=== PATIENT | male | born 1980 | race African-American/Black ===

== ENCOUNTER 2019-03-13 20:36 | Inpatient (IN) | payer SELFPAY ==
[2019-03-13] MEDS ORDERED: Aspirin Chewable 81 MG TAB ONE (21:05)
[2019-03-13 21:15] LABS: #Basophils 0.1 thou/uL (0.0-0.2); #Eosinphils 0.1 thou/uL (0.0-0.7); #Lymphocytes 4.1 thou/uL (1.20-3.40); #Monocytes 0.5 thou/uL (0.11-0.59); #Neutrophils 3.3 thou/uL (1.40-6.50); %Basophils 1.7 % (0.0-1.0); %Eosinophils 1.7 % (0.0-10.0); %Lymphocytes 49.9 % (21.0-51.0); %Monocytes 6.5 % (0.0-10.0); %Neutrophils 40.3 % (42.0-75.0); Hemoglobin 14.4 g/dL (14.0-18.0); Mean Corpuscular HGB CONC 32.7 g/dL (32.0-36.0); Mean Corpuscular Hemoglobin 30.3 pg (27.0-31.0); Mean Corpuscular Volume 92.5 fL (78.0-98.0); Mean Platelet Volume 6.1 fL (7.4-10.4); Platelet Count 283 thou/uL (130-400); RBC Distribution Width 13.3 % (11.5-14.5); Red Blood Cell (RBC) Count 4.75 mill/uL (4.70-6.10); White Blood Cell (WBC) Count 8.1 thou/uL (4.8-10.8)
--- NOTE | 2019-03-13 21:31 | RAD ---
PORTABLE CHEST ONE VIEW: 03/13/2019 9:18 p.m. HISTORY: Chest pain. COMPARISON: 06/01/2014 FINDINGS: The heart size is normal. The lungs are well expanded without focal areas of consolidation, pneumoth oraces, or pleural effusions. IMPRESSION: No acute process. POS: [facility]
[2019-03-13 21:38] LABS: ALT (SGPT) 27 U/L (8-55); AST (SGOT) 19 U/L (5-34); Alkaline Phosphatase 77 U/L (40-150); Anion Gap 13 mmol/L (10-20); BUN (Urea Nitrogen) 6 mg/dL (8.9-20.6); Bilirubin, Total 0.4 mg/dL (0.2-1.2); Calc. Creatinine Clearance 0 mL/min (70-130); Calcium 9.1 mg/dL (7.8-10.44); Carbon Dioxide 24 mmol/L (22-29); Chloride 104 mmol/L (98-107); Estimated GFR-MDRD Greater than 90; Globulin 2.9 g/dL (2.4-3.5); Glucose 96 mg/dL (70-105); Lipase 48 U/L (8-78); Potassium 3.8 mmol/L (3.5-5.1); Protein, Total 6.9 g/dL (6.0-8.3); Sodium 137 mmol/L (136-145)
[2019-03-13 22:05] LABS: CKMB 6.9 ng/mL (0-6.6)
[2019-03-13] MEDS ORDERED: Acetaminophen 325 MG TAB PO PRN (23:33)
[2019-03-13] MEDS ORDERED: HYDROcodone/Acetaminophen 5/325 mg Tablet PO PRN ×2 (23:33)
[2019-03-13] MEDS ORDERED: Ondansetron ODT 4 MG TAB SL PRN (23:33)
[2019-03-13] MEDS ORDERED: Ondansetron PF 4 MG/2 ML Vial IVP PRN (23:33)
[2019-03-13] MEDS ORDERED: Sodium Chloride 0.9% 1,000 ML IV SCH (23:45)
[2019-03-14 00:14] VITALS: BMI 30.5
[2019-03-14] MEDS ORDERED: Ondansetron ODT 4 MG TAB PO PRN (00:25)
[2019-03-14] MEDS ORDERED: Ondansetron PF 4 MG/2 ML Vial IVP PRN (00:25)
[2019-03-14] MEDS ORDERED: Morphine 2 MG/ML SYRINGE SLOW IVP PRN (00:25)
[2019-03-14] MEDS ORDERED: Acetaminophen 500 MG TAB PO PRN (00:25)
[2019-03-14] MEDS ORDERED: hydrALAZINE 20 MG/ML VIAL SLOW IVP PRN (00:25)
[2019-03-14] MEDS ORDERED: Nitroglycerin 0.4 MG TAB (25 Tab Bottle) SL PRN (00:25)
[2019-03-14 01:22] LABS: Troponin I 1.488 ng/mL (< 0.028)
[2019-03-14] MEDS: Nitroglycerin 2% Ointment 1 INCH/1 GM Packet TOP SCH ×3 (01:50→19:27)
[2019-03-14 04:00] LABS: Troponin I 1.964 ng/mL (< 0.028)
[2019-03-14 05:44] LABS: Anion Gap 13 mmol/L (10-20); BUN (Urea Nitrogen) 5 mg/dL (8.9-20.6); Calc. Creatinine Clearance 173 mL/min (70-130); Calcium 9.2 mg/dL (7.8-10.44); Carbon Dioxide 22 mmol/L (22-29); Chloride 108 mmol/L (98-107); Estimated GFR-MDRD Greater than 90; Glucose 98 mg/dL (70-105); Potassium 3.8 mmol/L (3.5-5.1); Sodium 139 mmol/L (136-145)
[2019-03-14 06:00] LABS: Eosinophils 2 % (0-10); Hemoglobin 13.4 g/dL (14.0-18.0); Lymphocytes 58 % (21-51); MDiff Complete? YES; Mean Corpuscular HGB CONC 32.8 g/dL (32.0-36.0); Mean Corpuscular Hemoglobin 30.7 pg (27.0-31.0); Mean Corpuscular Volume 93.6 fL (78.0-98.0); Mean Platelet Volume 6.5 fL (7.4-10.4); Monocytes 6 % (0-10); Neutrophil 34 % (42-75); Platelet Count 272 thou/uL (130-400); RBC Distribution Width 13.1 % (11.5-14.5); Red Blood Cell (RBC) Count 4.38 mill/uL (4.70-6.10); White Blood Cell (WBC) Count 8.7 thou/uL (4.8-10.8)
[2019-03-14 06:16] LABS: Amphetamine Detected (NotDetected); Barbiturates Screen Not Detected (NotDetected); Benzodiazepine Screen Not Detected (NotDetected); Cocaine Metabolite Screen Not Detected (NotDetected); Medtox Control Line Valid? VALID (VALID); Medtox Reader # READER 4; Methadone Not Detected (NotDetected); Methamphetamine Detected (NotDetected); Opiate Screen Detected (NotDetected); Oxycodone Screen Not Detected (NotDetected); Phencyclidine (PCP) Not Detected (NotDetected); THC/Cannabinoid Screen Not Detected (NotDetected); Tricyclic Screen Not Detected (NotDetected)
--- NOTE | 2019-03-14 08:21 | HP ---
PRIMARY CARE PROVIDER: Dr. Silver. CHIEF COMPLAINT: Chest pain. HISTORY OF PRESENT ILLNESS: This is a 38-year-old male with a known history of coronary artery disease, status post cardiac stent placement to proximal LAD in 2011, currently medically managed with aspirin and Plavix, presenting with complaints of chest pain in the last 24 hours. The patient states the pain initiated while at rest, centrally located with some diaphoresis. The patient states there was some improvement in chest pain without specific intervention. However, initially rated the pain 6/10 and sharp. The patient states he had similar symptoms when he had his first myocardial infarction in 2011, prompting him to seek medical attention in the emergency room. The patient initially presented to [facility], receiving aspirin, topical nitroglycerin, morphine sulfate, and Lovenox 100 mg subcutaneously x1 dose. Initial EKG showed a normal sinus mechanism without ST elevation. Initial troponin drawn at [facility] was normal. However, the second troponin was 0.47. Chest imaging showed no acute infiltrate. BNP was less than 10. The patient was transferred to the telemetry unit for further evaluation. PAST MEDICAL HISTORY: 1. Coronary artery disease, status post cardiac stent placement to the proximal LAD in 2011. 2. Tobacco abuse, ongoing. 3. Hyperlipidemia. PAST SURGICAL HISTORY: 1. Status post cardiac stent placement to the proximal LAD in 2011. 2. Status post cardiac catheterization without intervention in 2017. CURRENT MEDICATIONS: 1. Enteric-coated aspirin 325 mg p.o. daily. 2. Plavix 75 mg p.o. daily. 3. Lisinopril 40 mg p.o. daily. 4. Metoprolol tartrate 25 mg p.o. daily. 5. Simvastatin 80 mg p.o. at bedtime. ALLERGIES: NO KNOWN DRUG ALLERGIES. FAMILY HISTORY: Coronary artery disease in the patient's mother and father. History of CVA in the patient's mother. SOCIAL HISTORY: The patient resides in the [place], [place] area. Smokes up to a pack of cigarettes daily. No alcohol or illicit drug use reported. Functional of all activities of daily living. REVIEW OF SYSTEMS: CONSTITUTIONAL: Negative for weight loss or gain, ability to conduct usual activities. SKIN: Negative for rash, itching. EYES: Negative for double vision, pain. ENT/MOUTH: Negative for nose bleeding, neck stiffness, pain, tenderness. CARDIOVASCULAR: Negative for palpitations, dyspnea on exertion, orthopnea. RESPIRATORY: Negative for shortness of breath, wheezing, cough, hemoptysis, fever or night sweats. GASTROINTESTINAL: Negative for poor appetite, abdominal pain, heartburn, nausea, vomiting, constipation, or diarrhea. GENITOURINARY: Negative for urgency, frequency, dysuria, nocturia. MUSCULOSKELETAL: Negative for pain, swelling. NEUROLOGIC/PSYCHIATRIC: Negative for anxiety, depression. ALLERGY/IMMUNOLOGIC: Negative for skin rash, bleeding tendency. Otherwise, negative except as stated per HPI. PHYSICAL EXAMINATION: VITAL SIGNS: On admission, blood pressure 129/76, pulse 72, respiratory rate 16, temperature 97.6 degrees Fahrenheit, O2 saturation 98% on room air. GENERAL APPEARANCE: This is a 38-year-old male, alert, responsive, in no acute distress. HEENT: Pupils are equal, round, reactive to light and accommodation. Extraocular muscles are intact. No scleral icterus. No conjunctival injection. Nares patent. OP is clear. NECK: Supple. No cervical adenopathy. No thyromegaly. No carotid bruits. No JVD appreciated. Cervical spine with full active and passive range of motion. No meningeal signs noted. CHEST: Lungs are clear to auscultation bilaterally. CARDIOVASCULAR: S1 and S2 without noted murmur, rub, or gallop. ABDOMEN: Rounded, soft, nontender, and nondistended. Bowel sounds present in all 4 quadrants. No palpable mass. EXTREMITIES: Warm and dry with fair turgor. No clubbing, cyanosis, or asymmetric edema appreciated. Pulses palpable distally at the dorsalis pedis, posterior tibial, and popliteal arteries bilaterally. Capillary refill less than 2 seconds. NEUROLOGIC: Cranial nerves 2-12 are grossly intact. No focal or lateralizing signs appreciated. PERTINENT LABORATORY AND X-RAY FINDINGS: Troponin ranged between 0.06 to 0.47. Complete metabolic profile within normal limits. CBC within normal limits. Portable chest x-ray dated 03/13/2019 showed no acute cardiopulmonary process. EKG dated 03/13/2019 by my interpretation shows sinus mechanism with heart rates in the 60s. Normal R-wave progression noted in the precordial leads. Normal axis. No acute ST-T wave changes appreciated. ASSESSMENT AND PLAN: 1. Non-ST elevation myocardial infarction. The patient will be admitted to the telemetry unit. The patient received aspirin and Plavix in addition to Lovenox 100 mg subcutaneously x1 dose. Check 2D transthoracic echocardiogram in the a.m. Consult Cardiology Service for consideration of repeat cardiac catheterization given the patient's history of coronary artery disease. Continue transdermal nitroglycerin. 2. Coronary artery disease. 3. Status post cardiac stent placement to the proximal LAD in 2011. See treatment and management in #1. 4. Tobacco abuse. Offered smoking cessation resources prior to discharge. 5. Hyperlipidemia. Check fasting lipid profile in the a.m. Continue Lipitor 40 mg p.o. at bedtime. 6. Prophylaxis. SCDs while in bed. Pepcid 20 mg p.o. b.i.d.. CODE STATUS: Full. Surrogate medical decision maker is the patient's spouse. Job ID: [id number]
[2019-03-14] MEDS ORDERED: Communication Order-Pharmacy FS SCH (08:30)
[2019-03-14] MEDS: Lisinopril 20 MG TAB PO SCH (09:01)
[2019-03-14] MEDS: Famotidine 20 MG TAB PO SCH ×2 (09:02→20:29)
[2019-03-14] MEDS: Clopidogrel Bisulfate 75 MG TAB PO SCH (09:02)
[2019-03-14] MEDS: Metoprolol Tartrate 25 MG TAB PO SCH (09:02)
[2019-03-14] MEDS: Aspirin 325 mg Enteric Coated Tablet PO SCH (09:02)
[2019-03-14] MEDS ORDERED: Verapamil 5 MG/2 ML VIAL ONE (09:30)
[2019-03-14] MEDS ORDERED: Heparin 10,000 UNITS/1 ML VIAL ONE (09:30)
[2019-03-14] MEDS ORDERED: Nitroglycerin 100MG/250ML BOT 250 ML ONE (09:31)
[2019-03-14] MEDS ORDERED: Lidocaine 1% (PF) 30 ML VIAL ONE (09:31)
[2019-03-14] MEDS ORDERED: Iopamidol 370 76% 100 ML VIAL ONE (10:15)
[2019-03-14] MEDS ORDERED: Iopamidol 370 76% 50 ML VIAL FS ONE (10:15)
--- NOTE | 2019-03-14 11:26 | CON ---
DATE OF CONSULTATION: 03/14/2019 INDICATION FOR CONSULTATION: A 38-year-old patient with history of coronary artery disease, underwent angioplasty and stent placement in 2011 and repeat cardiac catheterization in 2017. At that time, his last cardiac catheterization was in December 2016 after suffering a non ST-segment elevation myocardial infarction. Ejection fraction was estimated at 40% to 45%. He also had 2/3 diastolic dysfunction. The cardiac catheterization at that time showed a patent stent in the left anterior descending artery with 40% stenosis in the proximal right coronary artery and the diagonal branch was too small to intervene upon. He was treated medically. He has been doing well since that time. He has not followed up in the office since 2014. He continues to work. Unfortunately, he continues to have hypertension, hypercholesterolemia, and tobacco abuse and uses illicit drugs in the form of methamphetamines and amphetamines and also drug screen was positive for opiates. I believe he was given some morphine in the emergency room. He was at work yesterday and started having some chest discomfort around 2 o'clock. He said that he rested and the pain resolved, but then it came back around 3 o'clock. He went to the emergency room around 0330 hours. He was given morphine and aspirin, and the pain decreased. This morning, he still continues to have some chest discomfort. His cardiac enzymes are positive for myocardial infarction. His troponin I continues to increase. On admission, it was 0.073. It has increased up to 1.48, and is now to 1.93 on the last evaluation, MB was 6.9 compatible with a non ST-segment elevation myocardial infarction. EKG does not show any acute changes and has a normal sinus rhythm. I have discussed with him the importance of proceeding with cardiac catheterization to define his coronary anatomy and I have explained the procedure, the risks to include bleeding, infection, possible myocardial infarction, CVA, renal insufficiency, allergic contrast reaction, and the possibility of , and he agrees to proceed. We will plan for cardiac catheterization this morning. PAST MEDICAL HISTORY: Otherwise is significant for the coronary artery disease, hypertension, dyslipidemia, illicit drug use, noncompliance with followups. SOCIAL HISTORY: He is . He has 2 children, no heart disease. He continues to smoke. He is trying to stop, but apparently still smoking and occasionally uses marijuana. 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 He has no alcohol use. FAMILY HISTORY: Positive for coronary artery disease in both of his parents, who had bypass surgery in their 30s and 40s. ALLERGIES: NONE. MEDICATIONS: Include Plavix, lisinopril, simvastatin, aspirin, p.r.n. clonidine, and nitroglycerin as needed as well as metoprolol. REVIEW OF SYSTEMS: Unremarkable except for the history as noted above with chest pain. He denied any HEENT complaints, GI complaints, complaints, musculoskeletal complaints, or neurological complaints. PHYSICAL EXAMINATION: GENERAL: Reveals a well-developed, well-nourished, and healthy-appearing gentleman. VITAL SIGNS: Blood pressure 133/79, heart rate is 86 and regular, respiratory rate is 18, and he is afebrile. HEENT: Shows head to be normocephalic and atraumatic. Carotid pulses are present. There were no bruits. CHEST: Clear to auscultation without rales, rhonchi, or wheezing. CARDIOVASCULAR: Exam reveals a regular rate and rhythm. Normal S1 and S2. There is no S3 or S4. There were no significant murmurs, heaves, thrills, bruits, or rubs. ABDOMEN: Soft and nontender. Positive bowel sounds are present. EXTREMITIES: Showed no clubbing, cyanosis, or edema. Pedal pulses are present. Radial pulses are present. He has multiple tattoos on the body. SKIN: Warm and dry. NEUROLOGIC: No gross focal deficits. LABORATORY DATA: EKG shows normal sinus rhythm with no acute changes. Labs as noted above; hemoglobin 13.4, WBC 8.7, and platelet count 272,000. Potassium 3.8, BUN of 5, and creatinine of 0.76. Blood sugar 98. IMPRESSION: 1. Non ST-segment elevation myocardial infarction in the patient who continues to smoke, has high blood pressure and hypercholesterolemia, who also continues to use illicit drugs. We will plan for cardiac catheterization this morning due to the elevated cardiac enzymes, which continued to increase and he also continues to have some chest discomfort. 2. History of tobacco abuse or ongoing tobacco abuse. He will be advised to stop smoking. 3. History of hypertension. This is under good control at this time. 4. Dyslipidemia. He is continued on his simvastatin. We will need to evaluate his laboratory data, most likely prior to admission. He has been somewhat noncompliant with followups in the office. 5. We will schedule him for cardiac catheterization on emergent basis. He has not had any breakfast yet and we will plan for cardiac catheterization this morning. Previous catheterization showed a patent stent in the left anterior descending artery with a proximal right coronary artery stenosis of 40%. Job ID: [id number]
--- NOTE | 2019-03-14 15:40 | PDOC.EVN ---
Event Note - Event Note Event Note: Record reviewed. Patient seen briefly. Getting echo. No complaints. Had cath with stent. Cards following.
[2019-03-14] MEDS ORDERED: Atorvastatin Calcium 40 MG TAB PO SCH (21:00)
[2019-03-15] MEDS: Nitroglycerin 2% Ointment 1 INCH/1 GM Packet TOP SCH ×2 (02:25→09:11)
[2019-03-15 05:59] LABS: ALT (SGPT) 20 U/L (8-55); AST (SGOT) 20 U/L (5-34); Albumin 3.5 g/dL (3.5-5.0); Alkaline Phosphatase 66 U/L (40-150); Anion Gap 9 mmol/L (10-20); BUN (Urea Nitrogen) 4 mg/dL (8.9-20.6); Bilirubin, Total 0.3 mg/dL (0.2-1.2); Calc. Creatinine Clearance 175 mL/min (70-130); Calcium 8.8 mg/dL (7.8-10.44); Carbon Dioxide 25 mmol/L (22-29); Cardiac Risk 5.7 (Less than 4.5); Chloride 109 mmol/L (98-107); Cholesterol 193 mg/dl (< 200 Desired); Estimated GFR-MDRD Greater than 90; Globulin 2.4 g/dL (2.4-3.5); Glucose 88 mg/dL (70-105); HDL Cholesterol 34 mg/dL (>60 Neg Risk); LDL Cholesterol, Calculated 134 mg/dL; Potassium 3.8 mmol/L (3.5-5.1); Protein, Total 5.9 g/dL (6.0-8.3); Sodium 139 mmol/L (136-145); Triglycerides 124 mg/dL (Less than 150)
[2019-03-15 06:06] LABS: Critical Call Chem Troponin I RESULT DECREASING; Troponin I 1.641 ng/mL (< 0.028)
[2019-03-15 06:52] LABS: Hemoglobin 13.5 g/dL (14.0-18.0); Mean Corpuscular Volume 93.9 fL (78.0-98.0); Mean Platelet Volume 6.1 fL (7.4-10.4); Platelet Count 268 thou/uL (130-400); RBC Distribution Width 13.2 % (11.5-14.5); White Blood Cell (WBC) Count 6.9 thou/uL (4.8-10.8)
[2019-03-15 07:30] LABS: Eosinophils 1 % (0-10); Lymphocytes 47 % (21-51); MDiff Complete? YES; Monocytes 6 % (0-10); Neutrophil 43 % (42-75); RBC Morphology Normal; Reactive Lymphocytes 3 % (0-10)
[2019-03-15] MEDS: Lisinopril 20 MG TAB PO SCH (09:06)
[2019-03-15] MEDS: Metoprolol Tartrate 25 MG TAB PO SCH (09:07)
[2019-03-15] MEDS: Clopidogrel Bisulfate 75 MG TAB PO SCH (09:07)
[2019-03-15] MEDS: Aspirin 325 mg Enteric Coated Tablet PO SCH (09:07)
[2019-03-15] MEDS: Famotidine 20 MG TAB PO SCH (09:07)
[2019-03-15 09:08] VITALS: BP 116/70
[2019-03-15 09:37] VITALS: TEMP 98.1
--- NOTE | 2019-03-15 10:51 | PDOC.CTH ---
Cardiology Progress Note - Subjective The pt seen and examined. No overnight events. No cardiac complaints. He cont. having intermittent mild discomfort to Lt MS border with movement. - Objective Vital Signs Temp Pulse Resp BP BP BP Pulse Ox 03/15/19 09:10 98 03/15/19 09:07 98.1 F 70 14 116/70 98 03/15/19 09:06 116/70 03/15/19 04:04 98.6 F 66 18 97/50 L 95 03/15/19 00:00 97.9 F 65 113/60 98 Weight 197 lb 8 oz 03/14/19 03/15/19 03/16/19 06:59 06:59 06:59 Intake Total 560 Output Total 725 Balance -165 - Physical Examination General/Neuro: alert & oriented x3 Neck: no JVD present Lungs: CTA Heart: RRR Abdomen: soft Extremities: other: (No edema) - Telemetry Telemetry Rhythm: SR - Labs Result Diagrams: 03/15/19 05:17 03/15/19 05:17 Troponin/CKMB CK-MB (CK-2) 6.9 ng/mL (0-6.6) H* 03/13/19 21:08 Troponin I 1.641 ng/mL (< 0.028) H* 03/15/19 05:17 - Assessment/Plan 1. CAD with hx of multiple NC and stent - S/p C with NADEEM in prox LAD and 50% stenosis in DM2, dis LAD, RCA on 03/15/2019; On bblocker, IZABELLA, ASA, and Plavix; on Statin 2. HTN - decreased Lisinopril from 40mg to 20mg qd; 3. HLD - on Statin 4. Current smoker - strongly recommend smoking cessation; MAR reviewed * The pt is stable to d/c home; the pt will f/u with Dr Tom' office within 2-3 wks. Review of Systems - Review of Systems Constitutional: reports: no symptoms reported EENTM: reports: no symptoms reported Respiratory: reports: no symptoms reported Cardiac (ROS): reports: no symptoms reported ABD/GI: reports: no symptoms reported : reports: no symptoms reported Musculoskeletal: reports: no symptoms reported
--- NOTE | 2019-03-15 11:37 | EKG ---
Test Reason : POST STENT - LAD Blood Pressure : / mmHG Vent. Rate : 061 BPM Atrial Rate : 061 BPM P-R Int : 154 ms QRS Dur : 084 ms QT Int : 392 ms P-R-T Axes : 053 052 029 degrees QTc Int : 394 ms Normal sinus rhythm ST elevation, consider early repolarization, pericarditis, or injury Abnormal ECG Confirmed by ARA LEZAMA ([id number]) on 03/15/2019 11:37:11 AM Referred By: ADRIANA Confirmed By:ARA LEZAMA
--- NOTE | 2019-03-15 16:13 | EKG ---
Test Reason : Blood Pressure : / mmHG Vent. Rate : 065 BPM Atrial Rate : 065 BPM P-R Int : 126 ms QRS Dur : 082 ms QT Int : 366 ms P-R-T Axes : -04 050 -04 degrees QTc Int : 380 ms Normal sinus rhythm ST elevation, consider early repolarization, pericarditis, or injury Abnormal ECG Confirmed by ARA LEZAMA ([id number]) on 03/15/2019 4:12:57 PM Referred By: ADRIANA Confirmed By:ARA LEZAMA
--- NOTE | 2019-03-16 02:27 | DIS ---
DATE OF ADMISSION: 03/13/2019 DATE OF DISCHARGE: 03/15/2019 DISCHARGE DISPOSITION: Home. FOLLOWUP: 1. Follow up with primary care physician at [facility] in 1 week. 2. Follow up with Cardiology, Dr. Tom, in 2 to 3 weeks as scheduled. ALLERGIES: NO KNOWN DRUG ALLERGIES. THE PATIENT WAS SEEN AND EXAMINED ON THE DAY OF DISCHARGE. DENIES ANY NEW COMPLAINTS. NO CHEST PAIN, SHORTNESS OF BREATH, OR PALPITATIONS. DISCHARGE MEDICATIONS: 1. Aspirin 325 mg daily. 2. Plavix 75 mg daily. 3. Metoprolol tartrate 25 mg daily. 4. Simvastatin 80 mg at bedtime. 5. Sublingual nitroglycerin as needed. 6. Lisinopril 20 mg daily (dose reduced). SIGNIFICANT LABS: Maximum troponin 1.96. Hemoglobin 13.5. Sodium 139, potassium 3.8. LFTs in normal range. Urine drug screen was positive for amphetamines, methamphetamines, and opiates. INPATIENT PROCEDURES: On 14 March 2019, the patient underwent cardiac catheterization with successful PCI with drug-eluting stent placement in the mid LAD, 3.5 x 20 mm Synergy to 3.7 mm. He also had 90% stenosis in the RCA, 50% in the left circumflex, and distal stenosis in the LAD. Echocardiogram showed left ventricular ejection fraction 50% to 55% with mild tricuspid regurgitation and trace mitral regurgitation. BRIEF HOSPITAL COURSE: The patient is a 38-year-old male with coronary artery disease, status post stent placement, ongoing tobacco abuse, and hyperlipidemia, presented to the emergency room with chest discomfort. His workup was consistent with [id number] VT. He underwent cardiac catheterization with drug-eluting stent placement in the LAD. Lifestyle modification was emphasized. He is chest pain-free and appears stable for discharge. He has been cleared by Cardiology for discharge. FINAL DIAGNOSES: 1. Lih-[id number] myocardial infarction. 2. Coronary artery disease, status post stent placement. 3. Hypertension. Lisinopril dose has been reduced to 20 mg daily. 4. Hyperlipidemia. 5. Tobacco dependence. 6. Family history of heart disease. 7. Mild chronic anemia. PLAN: Plan of care was discussed with the patient in detail. He stated understanding. Job ID: [id number]
[2019-03-16] MEDS ORDERED: Lisinopril 10 MG TAB PO SCH (09:00)
[2019-03-16] MEDS ORDERED: Lisinopril 20 MG TAB PO SCH (09:00)
--- NOTE | 2019-03-17 11:12 | EKG ---
Test Reason : Blood Pressure : / mmHG Vent. Rate : 067 BPM Atrial Rate : 067 BPM P-R Int : 130 ms QRS Dur : 086 ms QT Int : 362 ms P-R-T Axes : 052 052 054 degrees QTc Int : 382 ms Normal sinus rhythm Normal ECG Confirmed by FRED FREEMAN M.D. ([id number]), television news video editor LEAH SANCHEZ ([id number]) on 03/17/2019 11:12:23 AM Referred By: Confirmed By:FRED FREEMAN M.D.
== END 2019-03-15 11:50 | disposition home or self-care (01) | DRG 247 ==
LOC: ERS 20:36 → 2NO 21:48
PROVIDERS: ADMIT Family Medicine; ATTEND Family Medicine
PROC: 027034Z Dilation of Coronary Artery, One Artery with Drug-eluting Intraluminal Device, Percutaneous Approach (ICD-10-PCS; principal; 2019-03-13)
PROC: B2111ZZ Fluoroscopy of Multiple Coronary Arteries using Low Osmolar Contrast (ICD-10-PCS; 2019-03-13)
DX: I21.4 Non-ST elevation (NSTEMI) myocardial infarction (principal); I25.10 Atherosclerotic heart disease of native coronary artery without angina pectoris; F17.210 Nicotine dependence, cigarettes, uncomplicated; I10 Essential (primary) hypertension; E78.00 Pure hypercholesterolemia, unspecified; I08.1 Rheumatic disorders of both mitral and tricuspid valves; D64.9 Anemia, unspecified; F15.10 Other stimulant abuse, uncomplicated; I25.2 Old myocardial infarction; Z79.01 Long term (current) use of anticoagulants; Z79.899 Other long term (current) drug therapy
CPT/HCPCS: 36415; 71045; 80048; 80053; 80061; 80306; 82553; 83690; 83880; 84484; 85007; 85025; 85027; 85347; 92928; 93005; 93010; 93306; 93454; 93798; 96360; C1725; C1769; C1874; C1887; C9600; J1644; J2001; Q9967

== ENCOUNTER 2020-03-07 13:09 | Emergency (ER) | payer OTHER, SELFPAY ==
[2020-03-09 11:58] LABS: SARS-CoV-2 MS2 Positive; SARS-CoV-2 N Gene Positive; SARS-CoV-2 S Gene Positive; SARS-CoV-2 orf1ab Positive
== END 2020-03-07 13:45 | disposition home or self-care (01) ==
LOC: ERS 13:09
DX: U07.1 COVID-19 (principal); E78.5 Hyperlipidemia, unspecified; I10 Essential (primary) hypertension; I25.2 Old myocardial infarction; J45.909 Unspecified asthma, uncomplicated; F17.210 Nicotine dependence, cigarettes, uncomplicated; Z79.899 Other long term (current) drug therapy
CPT/HCPCS: 87635; 99283; U0003

== ENCOUNTER 2020-12-17 09:00 | Emergency (ER) | payer OTHER ==
[2020-12-17] MEDS ORDERED: Dexamethasone 10 MG/ML VIAL ONE (11:54)
[2020-12-17] MEDS ORDERED: Metoclopramide HCl 10 MG/2 ML VIAL ONE (11:54)
[2020-12-17] MEDS ORDERED: Ketorolac Tromethamine 30 MG/ML VIAL ONE (11:54)
== END 2020-12-17 13:34 | disposition home or self-care (01) ==
LOC: ERS 09:00
DX: R51.9 Headache, unspecified (principal); I25.2 Old myocardial infarction; E78.5 Hyperlipidemia, unspecified; E78.00 Pure hypercholesterolemia, unspecified; I10 Essential (primary) hypertension; J45.909 Unspecified asthma, uncomplicated; F17.210 Nicotine dependence, cigarettes, uncomplicated; Z79.899 Other long term (current) drug therapy; Z79.82 Long term (current) use of aspirin
CPT/HCPCS: 96365; 96375; J1100; J1885; J2765

== ENCOUNTER 2021-09-11 07:37 | Inpatient (IN) | payer OTHER, SELFPAY ==
[2021-09-11] MEDS ORDERED: Ondansetron PF 4 MG/2 ML Vial IVP PRN (08:28)
[2021-09-11] MEDS ORDERED: Ondansetron ODT 4 MG TAB PO PRN (08:29)
[2021-09-11 08:45] LABS: Bilirubin Negative (Negative); Blood, Urine Negative (Negative); Clarity Clear (Clear); Glucose, Urine (Dipstick) Normal (Negative); Ketone, Urine Negative (Negative); Leukocyte Negative Leu/uL (Negative); Nitrite Negative (Negative); Protein, Urine (Dipstick) Negative (Neg-Trace); Specific Gravity, Urine 1.012 (1.002-1.036); Urobilinogen Normal mg/dL (Less than 2)
[2021-09-11 08:51] LABS: Amphetamine Detected (NotDetected); Barbiturates Screen Not Detected (NotDetected); Benzodiazepine Screen Not Detected (NotDetected); Cocaine Metabolite Screen Not Detected (NotDetected); Methadone Not Detected (NotDetected); Methamphetamine Detected (NotDetected); Opiate Screen Not Detected (NotDetected); Oxycodone Screen Not Detected (NotDetected); Phencyclidine (PCP) Not Detected (NotDetected); THC/Cannabinoid Screen Detected (NotDetected); Tricyclic Screen Not Detected (NotDetected)
[2021-09-11] MEDS ORDERED: Aspirin 81 mg Enteric Coated Tablet PO SCH (09:00)
[2021-09-11] MEDS ORDERED: Acetaminophen 325 MG TAB PO PRN (09:13)
[2021-09-11] MEDS ORDERED: Heparin 10,000 UNITS/ 10 ML VIAL SLOW IVP SCH (09:15)
[2021-09-11] MEDS ORDERED: Clopidogrel Bisulfate 75 MG TAB PO SCH (09:15)
[2021-09-11 09:16] LABS: CKMB 1.6 ng/mL (0-6.6)
[2021-09-11] MEDS ORDERED: Iopamidol 370 76% 100 ML VIAL ONE (09:39)
[2021-09-11] MEDS ORDERED: Iopamidol 370 76% 50 ML VIAL FS ONE (09:39)
[2021-09-11] MEDS ORDERED: Verapamil 5 MG/2 ML VIAL ONE (10:48)
[2021-09-11] MEDS ORDERED: Heparin 10,000 UNITS/ 10 ML VIAL ONE (10:48)
[2021-09-11] MEDS ORDERED: Nitroglycerin 100MG/250ML BOT 250 ML ONE (10:49)
[2021-09-11 11:48] VITALS: BMI 27.9
[2021-09-11] MEDS ORDERED: Clopidogrel Bisulfate 300 MG TAB ONE (12:30)
[2021-09-11] MEDS ORDERED: Morphine 4 MG/ML VIAL ONE (12:36)
[2021-09-11] MEDS ORDERED: Nitroglycerin 0.4 MG TAB (25 Tab Bottle) SL PRN (13:05)
[2021-09-11] MEDS ORDERED: Lisinopril 20 MG TAB PO SCH (13:15)
[2021-09-11] MEDS ORDERED: Lisinopril 2.5 MG TAB PO SCH (14:00)
[2021-09-11 14:33] LABS: Troponin I 0.057 ng/mL (< 0.028)
[2021-09-11 17:41] LABS: Troponin I 0.055 ng/mL (< 0.028)
[2021-09-11] MEDS ORDERED: Atorvastatin Calcium 40 MG TAB PO SCH ×2 (21:00)
[2021-09-11] MEDS: Metoprolol Tartrate 25 MG TAB PO SCH (21:15)
[2021-09-12 04:49] LABS: #Basophils 0.1 thou/uL (0.0-0.2); #Eosinphils 0.1 thou/uL (0.0-0.7); #Lymphocytes 3.6 thou/uL (1.20-3.40); #Monocytes 0.8 thou/uL (0.11-0.59); #Neutrophils 2.9 thou/uL (1.40-6.50); %Basophils 0.9 % (0.0-1.0); %Eosinophils 1.1 % (0.0-10.0); %Lymphocytes 48.8 % (21.0-51.0); %Monocytes 10.3 % (0.0-10.0); Hemoglobin 14.1 g/dL (14.0-18.0); Mean Corpuscular HGB CONC 33.1 g/dL (32.0-36.0); Mean Corpuscular Hemoglobin 31.5 pg (27.0-31.0); Mean Corpuscular Volume 95.1 fL (78.0-98.0); Mean Platelet Volume 6.1 fL (7.4-10.4); Platelet Count 288 thou/uL (130-400); RBC Distribution Width 13.3 % (11.5-14.5); Red Blood Cell (RBC) Count 4.47 mill/uL (4.70-6.10); White Blood Cell (WBC) Count 7.4 thou/uL (4.8-10.8)
[2021-09-12 05:10] LABS: Anion Gap 11 mmol/L (10-20); BUN (Urea Nitrogen) 10 mg/dL (8.9-20.6); Bilirubin, Total 0.2 mg/dL (0.2-1.2); Calc. Creatinine Clearance 156 mL/min (70-130); Calcium 8.9 mg/dL (7.8-10.44); Carbon Dioxide 23 mmol/L (22-29); Chloride 108 mmol/L (98-107); Glucose 98 mg/dL (70-105); Potassium 4.2 mmol/L (3.5-5.1); Protein, Total 6.5 g/dL (6.0-8.3); Sodium 138 mmol/L (136-145)
[2021-09-12 05:11] LABS: ALT (SGPT) 21 U/L (8-55); AST (SGOT) 14 U/L (5-34); Albumin 3.6 g/dL (3.5-5.0); Alkaline Phosphatase 74 U/L (40-110); Globulin 2.9 g/dL (2.4-3.5)
[2021-09-12] MEDS: Metoprolol Tartrate 25 MG TAB PO SCH (08:43)
[2021-09-12] MEDS ORDERED: Clopidogrel Bisulfate 75 MG TAB PO SCH (09:00)
[2021-09-12] MEDS ORDERED: Aspirin Chewable 81 MG TAB PO SCH (09:00)
[2021-09-12] MEDS ORDERED: Lisinopril 20 MG TAB PO SCH (09:00)
[2021-09-12 12:16] VITALS: BP 117/61; TEMP 97.5
== END 2021-09-12 14:44 | disposition home or self-care (01) | DRG 246 ==
LOC: ERS 07:37 → 2NO 08:19 → OBSVTOIN 13:06
PROVIDERS: ADMIT Internal Medicine; ATTEND Family Medicine
PROC: 027034Z Dilation of Coronary Artery, One Artery with Drug-eluting Intraluminal Device, Percutaneous Approach (ICD-10-PCS; principal; 2021-09-11)
PROC: 4A023N7 Measurement of Cardiac Sampling and Pressure, Left Heart, Percutaneous Approach (ICD-10-PCS; 2021-09-11)
PROC: B2151ZZ Fluoroscopy of Left Heart using Low Osmolar Contrast (ICD-10-PCS; 2021-09-11)
PROC: B2111ZZ Fluoroscopy of Multiple Coronary Arteries using Low Osmolar Contrast (ICD-10-PCS; 2021-09-11)
DX: I97.190 Other postprocedural cardiac functional disturbances following cardiac surgery (principal); I21.A9 Other myocardial infarction type; T82.855A Stenosis of coronary artery stent, initial encounter; Z20.822 Contact with and (suspected) exposure to COVID-19; I25.10 Atherosclerotic heart disease of native coronary artery without angina pectoris; E78.5 Hyperlipidemia, unspecified; I10 Essential (primary) hypertension; J45.909 Unspecified asthma, uncomplicated; F15.10 Other stimulant abuse, uncomplicated; F12.10 Cannabis abuse, uncomplicated; E78.00 Pure hypercholesterolemia, unspecified; F17.210 Nicotine dependence, cigarettes, uncomplicated; Z79.02 Long term (current) use of antithrombotics/antiplatelets; Z79.82 Long term (current) use of aspirin; Z79.899 Other long term (current) drug therapy; Z82.49 Family history of ischemic heart disease and other diseases of the circulatory system; I25.2 Old myocardial infarction; Z82.3 Family history of stroke; Z83.3 Family history of diabetes mellitus; Z95.5 Presence of coronary angioplasty implant and graft; Y71.8 Miscellaneous cardiovascular devices associated with adverse incidents, not elsewhere classified; Y84.0 Cardiac catheterization as the cause of abnormal reaction of the patient, or of later complication, without mention of misadventure at the time of the procedure
CPT/HCPCS: 36415; 80053; 80306; 81003; 82553; 84484; 85025; 85347; 92928; 93005; 93010; 93458; 97139; C1874; C9600; G0378; J1644; J2270; Q9967

== ENCOUNTER 2025-06-05 10:49 | Outpatient (CLI) | payer OTHER | END 2025-06-05 10:50 | disposition home or self-care (01) | LOC: SCSMRI 10:49 | PROVIDERS: ATTEND Family Medicine Sports Medicine | DX: S46.012A Strain of muscle(s) and tendon(s) of the rotator cuff of left shoulder, initial encounter (principal); M24.112 Other articular cartilage disorders, left shoulder; M25.412 Effusion, left shoulder ==

== ENCOUNTER 2025-07-29 09:47 | Outpatient (CLI) | payer OTHER ==
[2025-07-29 11:15] LABS: #Basophils 0.04 10x3/uL (0.0-0.2); #Eosinophils 0.12 10x3/uL (0.0-0.7); #Monocytes 0.85 10x3/uL (0.11-0.59); #Neutrophils 2.97 10x3/uL (1.40-6.50); %Basophils 0.5 % (0.0-1.0); %Eosinophils 1.4 % (0.0-10.0); %Lymphocytes 52.8 % (21.0-51.0); %Monocytes 10.0 % (0.0-10.0); %Neutrophils 35.2 % (42.0-75.0); Hematocrit 42.4 % (42.0-52.0); Hemoglobin 13.8 g/dL (14.0-18.0); Mean Corpuscular Hemoglobin 29.9 pg (27.0-31.0); Mean Corpuscular Volume 91.8 fL (78.0-98.0); Platelet Count 288 10x3/uL (130-400); Red Blood Cell (RBC) Count 4.62 mill/uL (4.70-6.10); White Blood Cell (WBC) Count 8.46 10x3/uL (4.8-10.8)
[2025-07-29 11:35] LABS: Anion Gap 14 mmol/L (10-20); BUN (Urea Nitrogen) 8 mg/dL (8.9-20.6); Calc. Creatinine Clearance 0 mL/min (70-130); Calcium 8.7 mg/dL (7.8-10.44); Carbon Dioxide 26 mmol/L (22-29); Chloride 107 mmol/L (98-107); Glucose 76 mg/dL (70-105); Potassium 3.6 mmol/L (3.5-5.1); Sodium 143 mmol/L (136-145)
== END 2025-07-29 09:48 | disposition home or self-care (01) ==
LOC: LABBT 09:47
PROVIDERS: ATTEND Orthopaedic Surgery
DX: Z01.818 Encounter for other preprocedural examination (principal); M75.102 Unspecified rotator cuff tear or rupture of left shoulder, not specified as traumatic
CPT/HCPCS: 80048; 85025

== ENCOUNTER → 2025-08-14 | Day surgery (SDC) | payer OTHER ==
[2025-08-13 11:29] VITALS: BMI 32.1
[~2025-08-14] MED LIST: HYDROcodone/Acetaminophen 10/325 mg Tablet PO PRN; Ketorolac Tromethamine 30 MG (1 mL) VIAL IVP SCH; Lidocaine 1% PF 5 ML VIAL ONE; Ondansetron PF 4 MG/2 ML Vial IVP PRN; Ondansetron PF 4 MG/2 ML Vial ONE; PROPOFOL 200 MG/20 ML VIAL ONE; Rocuronium Bromide 10 MG/ML (10ML VIAL) ONE; Ropivacaine 0.2% 550 ML 550 ML NERVE BLCK SCH; Ropivacaine 0.5% HCl/PF (150 MG/30 ML VIAL) ONE; Ropivacaine 2% HCl/PF (20 MG/10 ML VIAL) ONE; SUGAMMADEX SODIUM 200 MG/2 ML VIAL ONE; Vancomycin HCl 1.5 GM VIAL ONE; fentaNYL PF 100 MCG/2 ML SYRINGE ONE
== END ==
LOC: SDC 11:36
PROVIDERS: ATTEND Orthopaedic Surgery
PROC: 0LS40ZZ Reposition Left Upper Arm Tendon, Open Approach (ICD-10-PCS; principal; 2025-08-14)
PROC: 0LQ20ZZ Repair Left Shoulder Tendon, Open Approach (ICD-10-PCS; principal; 2025-08-14)
PROC: 3E0T3BZ Introduction of Anesthetic Agent into Peripheral Nerves and Plexi, Percutaneous Approach (ICD-10-PCS; principal; 2025-08-14)
DX: M75.102 Unspecified rotator cuff tear or rupture of left shoulder, not specified as traumatic (principal); M25.812 Other specified joint disorders, left shoulder; S46.112A Strain of muscle, fascia and tendon of long head of biceps, left arm, initial encounter; F17.210 Nicotine dependence, cigarettes, uncomplicated; Z95.5 Presence of coronary angioplasty implant and graft; X58.XXXA Exposure to other specified factors, initial encounter
CPT/HCPCS: A4306; A6223; C1713; J1100; J2405; J2704; J2795; J3010